=== PATIENT | male | born 1945 | race Caucasian/White ===

== ENCOUNTER 2017-01-02 11:35 | Emergency (ER) | payer OTHER, MEDICARE ==
[~2017-01-02] VITALS: Ht 185.4 cm; Wt 136.1 kg
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
[2017-01-02] MEDS ORDERED: NARCAN4 MG INH/SOL (12:03)
[2017-01-02] MEDS ORDERED: LEVOTHYROXINE25 MCG PO (12:04)
[2017-01-02] MEDS ORDERED: METFORMIN HCL500 M2 PO (12:05)
[2017-01-02] MEDS ORDERED: LANTUS SOL100 UNIT/1 SC (12:06)
[2017-01-02] MEDS ORDERED: SENNA8.6 M3 PO (12:07)
[2017-01-02] MEDS ORDERED: MIRALAX119 GM PO (12:07)
[2017-01-02] MEDS ORDERED: BROMOCRIPTINE2.5 MG PO (12:09)
[2017-01-02] MEDS ORDERED: CARBIDOPA-LEVO1 EA12 PO (12:10)
[2017-01-02] MEDS ORDERED: AZILECT1 M1 PO (12:10)
[2017-01-02] MEDS ORDERED: MIRAPEX0.5 M1 PO (12:12)
[2017-01-02] MEDS ORDERED: REQUIP1 M1 PO (12:12)
[2017-01-02] MEDS ORDERED: COMTAN200 MG PO (12:14)
[2017-01-02] MEDS ORDERED: FLOMAX0.4 M1 PO (12:15)
[2017-01-02] MEDS ORDERED: M.V.I.-1250 ML PO (12:16)
[2017-01-02] MEDS ORDERED: KCL 10 MEQ20 MEQ/102 PO (12:17)
[2017-01-02] MEDS ORDERED: FOLIC ACID1 M1 PO (12:18)
[2017-01-02] MEDS ORDERED: VITAMIN B125000 MC1 PO (12:20)
[2017-01-02] MEDS ORDERED: ACETAMINOPHEN500 M4 PR (12:21)
[2017-01-02] MEDS ORDERED: ATIVAN0.5 M1 PO (12:23)
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
[2017-01-02 15:29] VITALS: BP 152/89
== END 2017-01-02 15:39 ==
LOC: ERH 11:35
DX: R45.1 Restlessness and agitation (principal)
CPT/HCPCS: G0463